=== PATIENT | male | born 1960 | race Caucasian/White ===

== ENCOUNTER → 2017-03-11 | Day surgery (SDC) | payer OTHER, BC ==
[2017-03-10 14:17] VITALS: BMI 29.0
--- NOTE | 2017-03-10 23:15 | History and Physical ---
History & Physical Date Mar 10, 2017. Chief Complaint right foot pain History of Present Illness The patient is a 57 year old male with complaints of right foot pain after a work injury where a large piece of metal rolled onto his steel toe boot. He had significant pain in his foot but left the boot on until he got to the ER. He was noted to have 2nd and 3rd metatarsal fx's. He was splinted and sent for surgical management. Past Medical/Surgical History PMH: none Past surgical hx: bilateral rotator cuff repairs Social Hx: No tobacco use. Allergies Coded Allergies: No Known Allergies (Unverified , 03/10/17) Home Medications Scheduled PRN Oxycodone/Acetaminophen 5MG/325MG (Percocet 5MG/325MG), 1-2 TABLETS PO Q4H PRN for Pain Physical Examination Skin: warm/dry, no rash Eyes: normal inspection ENT: normal ENT inspection Head: normocephalic, atraumatic Neck: supple, no adenopathy, trachea midline Respiratory/Chest: lungs clear, normal breath sounds Cardiovascular: regular rate, rhythm, no murmur Abdomen / GI: normal bowel sounds, non tender Extremities: + pertinent finding (Right foot: Moderate to severe swelling right dorsal and plantar foot. Tender along the 2nd/3rd metatarsal shafts. ) Neurologic/Psych: no motor/sensory deficits, alert, oriented x 3 Diagnosis Right foot 2nd and 3rd metatarsal shaft fx's Right foot swelling/hematoma Right foot crush injury. Plan of Treatment Recommend a right foot ORIF 2nd and 3rd metatarsal fx's, open medial hindfoot fascial release. All potential risks, benefits, complications, alternatives, and rehab have been discussed with the patient and he wishes to proceed. He will be scheduled for 03.11.17 with ASA 81 mg BID x 4-6 wks for DVT prophylaxis.
[~2017-03-11] VITALS: Ht 177.8 cm; Wt 90.9 kg
[~2017-03-11] MED LIST: ATROPINE SULFATE 0.1 MG/ML 5ML SYR IV PRN; BACITRACIN 50000 UNIT VIAL ONE; CEFAZOLIN 2000 MG/60 ML D5W IV SCH; EpHEDrine SULFATE 50MG/5ML SYR ONE; EpHEDrine SULFATE INJ 50 MG/ML AMP IV PRN; FENTANYL CITRATE INJ 50 MCG/1 ML 2 ML VIAL IV PRN; FENTANYL CITRATE INJ 50 MCG/1 ML 2 ML VIAL ONE; HYDROmorphone INJ 1 MG/ML SYR IV PRN; LIDOCAINE HCL 2% 2 ML VIAL (20MG/ML) ONE; MIDAZOLAM HCL 1 MG/ML 2ML VIAL ONE; MoRPHine SULFATE 2 MG/ML CARP IV PRN; ONDANSETRON INJ 2 MG/ML 2 ML VIAL IV PRN; OXYC-57 PO; OXYCODONE HCL IR 5 MG TAB (IMMEDIATE RELEASE) PO PRN; PROPOFOL IV EMULSION 10 MG/ML 20 ML VIAL IV ONE; ROPIVACAINE 0.5% 5 MG/ML 30 ML VIAL ONE
[2017-03-11 10:23] VITALS: BP 130/96; PULSE 69; TEMP 36.7; O2SAT 93; Ht 177.8 cm; Wt 90.9 kg
--- NOTE | 2017-03-11 10:42 | History & Physical Bridge Note ---
H&P Re-Evaluation Bridge Note: I have examined the patient, reviewed the History & Physical and in the interval since the performance of the History & Physical I have noted the following changes of clinical significance: No changes noted
[2017-03-11] MEDS: LACTATED RINGER'S 1000ML 1,000 ML IV SCH ×2 (10:55→13:02)
[2017-03-11 11:04] LABS: BASO % 0.1 %; BASO ABS # 0.01 K/uL (0-0.2); EOS % 1.6 %; HEMATOCRIT 42.5 % (42-52); IG% 0.1 %; LYMPH % 30.2 %; LYMPH ABS # 2.22 K/uL (1.2-3.4); MEAN CELL VOLUME 88.4 fL (80-100); MEAN CORPUSCULAR HEMOGLOBIN 30.4 pg (25-34); MEAN PLATELET VOLUME 9.5 fL (7.4-10.4); MONO % 9.1 %; NEUT % 58.9 %; PLATELET COUNT 215 K/uL (130-400); RED BLOOD COUNT 4.81 M/uL (4.7-6.1); WHITE BLOOD COUNT 7.36 K/uL (4.8-10.8)
[2017-03-11 11:20] LABS: PARTIAL THROMBOPLASTIN RATIO 1.2; PROTHROMBIN TIME (PATIENT) 11.1 SECONDS (9.0-12.0)
[2017-03-11 11:21] LABS: COMPLETE YES; MEAN CORPUSCULAR HGB CONC 34.4 g/dl (32-36)
[2017-03-11 11:40] LABS: BUN/CREATININE RATIO 15.8 (10-20); CALCIUM 8.9 mg/dl (8.5-10.1); CREATININE 1.1 mg/dl (0.60-1.40); POTASSIUM 4.4 mmol/L (3.5-5.1)
--- NOTE | 2017-03-11 14:44 | [facility] Post Operative Brief Note ---
Immediate Operative Summary Operative Date Mar 11, 2017. Pre-Operative Diagnosis Left 2nd and 3rd displaced metatarsal fractures. Left foot crush injury Post-Operative Diagnosis Left 2nd and 3rd displaced metatarsal fractures. Left foot crush injury Procedure(s) Performed 1. Left Foot Open Reduction Internal Fixation 2nd and 3rd Metatarsal Fractures; 2. Open Medial Hindfoot Fascial Release Surgeon Dr. Gilbert Technician [employer]communication [employer] Surgeon(s) Maksim Alba PA-C Estimated Blood Loss 5 ml Findings See Dict Specimens none per surgeon Drains None Anesthesia GLMA w/ popliteal block Complication(s) None Disposition Recovery Room / PACU
--- NOTE | 2017-03-11 14:53 | DIAGNOSTIC IMAGING REPORT ---
L FOOT 2 VIEWS CLINICAL HISTORY: LT ORIF FOOT COMPARISON STUDY: None. FINDINGS: 2 fluoroscopic spot images. Total fluoroscopy time was 5 seconds. There is internal fixation of the midshaft fractures of the second and third metatarsals with pins. The hardware appears intact. The alignment is near-anatomic. IMPRESSION: Fluoroscopy provided for internal fixation of the second third metatarsal fractures. Electronically signed by: Espinoza Pascual M.D. 03/11/2017 2:51 PM Dictated Date/Time: 03/11/2017 2:50 PM
--- NOTE | 2017-03-11 15:12 | Discharge Instructions ---
Discharge Instructions Date of Service Mar 11, 2017. Visit Reason for Visit: Left Foot Displaced Fracture Of 2ND Metatarsal Bon Discharge Discharge Diagnosis / Problem: Left 2nd and 3rd displaced metatarsal fractures. Left foot crush injury Discharge Goals Goal(s): Decrease discomfort, Improve function Activity Recommendations Activity Limitations: per Instructions/Follow-up section Weightbearing Status: Left non-weightbearing Anesthesia . Post Anesthesia Instructions: If you have had General Anesthesia or IV Sedation: * Do not drive today. * Resume driving when surgeon permits. * Do not make important decisions or sign legal documents today. * Call surgeon for: 1. Temperature elevations greater than 101 degrees F. 2. Uncontrollable pain. 3. Excessive bleeding. 4. Persistent nausea and vomiting. 5. Medication intolerance (nausea, vomiting or rash). * For nausea and vomiting use only clear liquids such as: tea, soda, bouillon until nausea subsides, then gradually increase diet as tolerated. * If you have any concerns or questions, call your surgeon's office. If physician is unavailable and it is an emergency, call 911 or go to the nearest emergency room. . Instructions / Follow-Up Instructions / Follow-Up ACTIVITY RECOMMENDATIONS: Limitations: Nonweightbearing on the left lower leg SPECIAL CARE INSTRUCTIONS: * Some drainage onto the dressing is normal and is no cause for alarm. * Some swelling is natural especially after walking. * When resting, keep your foot elevated above the level of your heart. * Call [facility] if you notice: -Increased drainage -Fever over 101 degrees F -Severe constant pain BANDAGE: * Leave bandage/cast in place unless otherwise directed. * Keep bandage/cast dry at all times. PIN CARE: * Leave pins alone. * If pins come loose or fall out, notify physician. FOLLOW UP VISIT WITH DR. MARTIN If appointment is not already scheduled: Please call [facility] after you get home today to schedule a follow-up appointment for [address] Martin at . Diet Recommendations Recommended Home Diet: resume previous diet Procedures Procedures Performed: 1. Left Foot Open Reduction Internal Fixation 2nd and 3rd Metatarsal Fractures; 2. Open Medial Hindfoot Fascial Release Pending Studies Studies pending at discharge: no Medical Emergencies . Who to Call and When: Medical Emergencies: If at any time you feel your situation is an emergency, please call 911 immediately. . Non-Emergent Contact Non-Emergency issues call your: Surgeon Call Non-Emergent contact if: temperature is above 101.5, your pain is not controlled, your pain is worsening, wound has increased drainage, wound has increased redness . . "Provider Documentation" section prepared by Min Alba. . [place] Drug Monitoring Program Search Results: patient reviewed within database, no issues identified
--- NOTE | 2017-03-11 15:47 | Anesthesiology Progress Note ---
Anesthesia Post Op Note Date & Time Mar 11, 2017 at 15:47 Vital Signs Pain Intensity: 2 Vital Signs Past 12 Hours Date Time Temp Pulse Resp B/P (MAP) Pulse Ox O2 Delivery O2 Flow Rate FiO2 03/11/17 15:35 56 16 143/105 96 Room Air 03/11/17 15:25 59 12 145/81 100 Oxymask 10 03/11/17 15:15 62 17 145/99 94 Oxymask 10 03/11/17 15:05 36.2 78 15 132/91 93 Oxymask 10 03/11/17 10:23 36.7 69 18 130/96 (107) 93 Room Air Notes Mental Status: alert / awake / arousable, participated in evaluation Pt Amnestic to Procedure: Yes Nausea / Vomiting: adequately controlled Pain: adequately controlled Airway Patency, RR, SpO2: stable & adequate BP & HR: stable & adequate Hydration State: stable & adequate Anesthetic Complications: no major complications apparent
[2017-03-11 15:53] VITALS: BP 139/81; PULSE 57; TEMP 36.5; O2SAT 97
[2017-03-11 16:25] VITALS: BP 129/79; PULSE 65; O2SAT 98
[2017-03-11 16:55] VITALS: BP 134/82; PULSE 63; TEMP 37; O2SAT 98
--- NOTE | 2017-03-11 21:20 | OPERATIVE REPORT ---
DATE OF OPERATION: 03/11/2017 PREOPERATIVE DIAGNOSES: 1. Left displaced second and third metatarsal fractures. 2. Crush injury to the left foot. POSTOPERATIVE DIAGNOSES: 1. Left displaced second and third metatarsal fractures. 2. Crush injury, left foot. 3. Concern for deep plantar compartment syndrome of the foot. PROCEDURE: 1. Open reduction internal fixation left second and third metatarsal fractures. 2. Medial hindfoot fasciotomy with release of the deep plantar compartment of the foot. SURGEON: Dr. Gilbert. PERSONNEL PLACEMENT SPECIALIST: Due to the complex nature of the procedure, the entire surgery was performed with the medical practice assistant of Min Alba PA-C. The legal assistant, under direct supervision, was involved in the actual performance of all aspects of the surgical procedure including hemostasis, tissue retraction and incision, instrument management, patient positioning, and wound closure. ANESTHESIA: General LMA with popliteal block. SPECIMENS: None. DRAINS: None. COMPLICATIONS: None. BLOOD LOSS: 5 mL. PERTINENT HISTORY: This is a 57-year-old gentleman who sustained a crush injury of his left foot while at work when a large piece of metal rolled onto his steel-toed boot. He had severe pain and swelling and was seen in the Emergency Department. Radiographs demonstrated severe soft tissue swelling and fracture of the second and third metatarsals. He was seen in clinic, radiographs reviewed and scheduled for surgery. There was concern for deep plantar compartment syndrome of the foot and he was scheduled for surgery. All potential risks, benefits, complications, alternatives, rehab, potential for incomplete relief of symptoms, need for further surgery, DVT, PE, , persistent pain, swelling, scarring, weakness, neurovascular injury, wound complications, hardware failure, nonunion, malunion, DVT, PE, were discussed with the patient. The patient decided to proceed with the procedure as indicated. DESCRIPTION OF PROCEDURE: After popliteal block was administered, the patient was then taken to the operative suite, placed supine on the operating room table. After reviewing consent and identification of proper operative site, patient anesthetized, LMA was placed. Tourniquet was placed high on the left thigh over cast padding. Left lower extremity was then sterilely prepped and draped in usual fashion, elevated, and exsanguinated with an Esmarch bandage, tourniquet inflated to 325 mmHg. Next, a 15 blade scalpel incisions were made on the medial aspect of the second metatarsal and the lateral aspect of the third metatarsal on the dorsum of the foot. This incision was deepened to subcutaneous tissue. Meticulous hemostasis was achieved with electrocautery. Full thickness skin flaps were developed. The extensor tendons were then retracted and protected and the incision adjacent to the second metatarsal. The fracture was then identified and then the periosteum was then sharply incised from the fracture site moving medially and laterally. A Weitlaner retractor was placed in the incision followed by irrigation of sterile normal saline until clear. Next, the 0.062 inch K wire was driven through the distal fragment to the plantar aspect of the foot in a retrograde fashion under live fluoroscopic assistance and direct reduction with a clamp. The 0.062 inch K-wire was then driven into the proximal fragment and fractured thus reducing in an anatomic alignment and position. Next, the pin was then cut and then capped to the Jergens ball. It was left external to the skin. Next, attention was then directed toward the third metatarsal and was irrigated until clear. A 0.062 K-wire was then driven out the tip of the distal fragment in a retrograde fashion, driven into the proximal fragment and stabilizing it in an anatomically reduced fashion with a clamp on the fracture site to hold it anatomically to reduce. Next, this pin was then clipped external to the skin and then a Jergens ball applied. Next radiographs demonstrated anatomic reduction and fixation of the second and third metatarsal fractures. Next, the wounds were irrigated copiously with sterile normal saline and then these skin incisions were then closed using 4-0 nylon sutures. Next, attention was then directed toward the medial hindfoot. A medial Parmjit incision was made from roughly to the level of the medial malleolus extending distally along the medial aspect of the foot followed by incision of the skin to the mid first metatarsal. This incision was then deepened through subcutaneous tissue. Meticulous hemostasis achieved with electrocautery. Full thickness skin flaps developed. Next, the abductor fascia was identified. First the laciniate ligament was then incised along the skin incision followed by incision of the abductor fascia. Abductor was then retracted plantar and then using a Joanna clamp, careful dissection was performed through the soft tissues, taking care to retract and protect the neurovascular bundle due to the deep plantar space revealing the quadratus plantae musculature. Next, after this small luis of local fluid consistent with hematoma into the deep plantar fascial compartment was confirmed and irrigated until clear. Next, the medial incision was then closed loosely at the dermis with buried interrupted 3-0 Vicryl and skin was closed using 4-0 nylon sutures. A sterile compressive dressing and bulky Hugo Sim plaster splint was applied with the foot held in neutral dorsiflexion. The tourniquet was released. The patient was awakened and taken to recovery in stable condition. I attest to the content of the Intraoperative Record and any orders documented therein. Any exception s are noted below.
== END | disposition home or self-care (01) ==
LOC: C.ACU 09:55
PROVIDERS: ATTEND Orthopaedic Surgery Sports Medicine
DX: S92.332A Displaced fracture of third metatarsal bone, left foot, initial encounter for closed fracture (principal); S92.322A Displaced fracture of second metatarsal bone, left foot, initial encounter for closed fracture; W23.0XXA Caught, crushed, jammed, or pinched between moving objects, initial encounter; Y99.0 Civilian activity done for income or pay; K21.9 Gastro-esophageal reflux disease without esophagitis